=== PATIENT | female | born 1935 | race Caucasian/White ===

== ENCOUNTER 2025-05-07 10:03 | Outpatient (AMB) | payer MEDICARE, SELFPAY ==
--- NOTE | 2025-05-07 10:04 | MHC.PC.OV ---
Vital Signs 05/07/25 10:06 Height 4 ft 10.27 in Weight 170 lb BMI 35.2 BP 152/82 H Respiration 18 Pulse 86 Pulse Source Pulse Oximeter Temp 98.1 F Temp Source Temporal Artery Scan Pulse Oximetry (%) 92 Oxygen Delivery Method Room Air Intake Visit Reasons: Est Care Transfer [place] Asthma, HTN Resident Engineer Required: No Accompanied by: daughter in law Allergies No Known Allergies Allergy (Verified 05/07/25 13:25) Medication List - Last Reconciled 05/07/25 by Karol Leong PA-C amlodipine 10 mg PO DAILY budesonide (Pulmicort) 0.5 mg (2 mL) inhalation BID kjyurlyecmk-wtwvlsmbh-wjegscgk 100-62.5-25 mcg (Trelegy Ellipta) 1 inh inhalation DAILY furosemide (Lasix) 40 mg PO DAILY loratadine (Claritin) 10 mg PO DAILY Tobacco use date assessed: 05/07/25 Fall risk assessment: No Falls in past year Last assessed Fall Risk: 05/07/25 Dental Screening Dental Screen Date: 05/07/25 Did you have a dental visit in the last 12 months?: Yes Did you have a dental problem in the last 6 months where you did not have access to dental care?: No Was dental information given to patient?: Patient has dentist HPI Est Care Transfer [place] Asthma, HTN HPI Details The patient is an 89-year-old female presenting to establish a new primary care provider as she just moved to [place] from [place] due to her daughter she was living with [place] had a massive stroke and is now bed-bound with 24 hour care. Patient's zmwvjgor-zx-abf reports that the patient has been suffering from dental abscesses and chronic condition management. She has a history of asthma, which is currently managed with inhalers, and she uses supplemental oxygen as needed, particularly during exertion and sleep. The patient has chronic hypoxemic respiratory failure and chronic lower extremity edema, which are monitored regularly. The patient has a history of hypertension, currently managed with amlodipine and Lasix. Her blood pressure management is under review, with potential adjustments to her medication regimen being considered. The patient has a history of tobacco use, having smoked in her youth, but quit approximately 60 years ago. She also has a history of gastroesophageal reflux disease, which is currently not symptomatic. Social History - Housing: Recently moved from [place] to [place]. - Family Status: Is currently living with her son and djmbptsk-wi-trb as her daughter in [place] had a massive stroke and is being taken care of by her granddaughter at this time. Her granddaughter could not take care of both of them therefore the patient moved here to live with her son and her sfwhxemv-te-wtn. - Substance Use: Former smoker, quit approximately 60 years ago. [facility] Medical History Obesity (BMI 35.0-39.9 without comorbidity) Dental abscess Poor dentition Dental caries Hypertension Establishing care with new doctor, encounter for Former smoker Chronic respiratory failure Asthma Pre-op evaluation Family History Mother Pre-diabetes Father Pneumonia Social History Housing: House Alcohol intake: current Alcohol intake frequency: does not drink Patient Tobacco Use Status: Former Tobacco user service: No Current occupational status: retired Cognitive needs: Yes (has cane/walker- does not use ) Hearing needs: No Vision needs: Yes (reading glasses) Questionnaire PHQ-9 Over the last 2 weeks, how often have you been bothered by any of the following problems? 1. Little interest or pleasure in doing things: not at all 2. Feeling down, depressed, or hopeless: not at all 3. Trouble falling or staying asleep, or sleeping too much: not at all 4. Feeling tired or having little energy: not at all 5. Poor appetite or overeating: not at all 6. Feeling bad about yourself - or that you are a failure or have let yourself or your family down: not at all 7. Trouble concentrating on things, such as reading the newspaper or watching television: not at all 8. Moving or speaking so slowly that other people could have noticed. Or the opposite - being so fidgety or restless that you have been moving around a lot more than usual: not at all 9. Thoughts that you would be better off or of hurting yourself in some way: not at all Total score: 0 Depression Screening Interpretation: Negative Depression Screening Done: Yes 80895 - PHQ-9 Billing: Yes Source: Developed by Drs. Bossman Angulo, Ana Maria Bourgeois, Ba Ball and colleagues, with an educational yolie from [employer]. Thrive Questionnaire Date Thrive assessed: 05/07/25 I am a: Patient What is your living situation today?: I have a steady place to live Within the past 12 months, did the food you bought not last and you didn't have the money to get more?: Never true Within the past 12 months, did you worry whether your food would run out before you got money to buy more?: Never true Do you have trouble paying for medicines?: No Do you have trouble getting transportation to medical appointments?: No Do you have trouble paying your heating and electricity bill?: No Do you have trouble taking care of your child, family member or friend?: No Do you have trouble with day-to-day activities such as bathing, preparing meals, shopping, managing finances, etc.?: No Are you currently unemployed and looking for a job?: No Are you interested in more education?: No Please select the resources that you would like help with: None THRIVE Score: 0 AUDIT C Alcohol Use Questionnaire (AUDIT-C) 1. How often do you have a drink containing alcohol?: Never 3. How often do you have six or more drinks on one occasion?: Never Total Score: 0 Score Reviewed/Action Taken: No RONNY-7 AMB Questionnaire RONNY-7 Date RONNY - 7 assessed: 05/07/25 Feeling nervous, anxious, or on edge: 0 = Not at all Not being able to stop or control worryin = Not at all Worrying too much about different things: 0 = Not at all Trouble relaxin = Not at all Being so restless that it is hard to sit still: 0 = Not at all Becoming easily annoyed or irritable: 0 = Not at all Feeling afraid as if something awful might happen: 0 = Not at all Total RONNY-7 score (0-4 normal; 5-9 mild; 10-14 moderate; 15-21 severe): 0 Source: Developed by Drs. Bossman Angulo, Ba Brewster and colleagues, with an educational yoile from [employer]. RONNY-7 Assessment Billing RONNY-7 Assessment Tool: RONNY-7 Assessment 38689 Review of Systems Const Details: - Respiratory: Reports dyspnea on exertion and during sleep. - Cardiovascular: Denies chest pain or palpitations. - Gastrointestinal: Denies current symptoms of gastroesophageal reflux disease. Physical exam (Primary Care) Vital Signs: Last Vital Signs Temp 98.1 F 05/07/25 10:06 Pulse 86 05/07/25 10:06 Resp 18 05/07/25 10:06 BP 152/82 H 05/07/25 10:06 Pulse Ox 92 05/07/25 10:06 Oxygen Delivery Method Room Air 05/07/25 10:06 Care Plan Goal for BP management: <140/90 patient to monitor her blood pressure and keep a blood pressure diary over the next week and return at her next visit in 1 week BMI result Body Mass Index 35.2 BMI Assessment/Plan discussion: High BMI High, discussed plan: lifestyle, weight reduction, dietary, physical activity and alcohol moderation Tobacco/Smoking Status: Tobacco use Status Tobacco use date assessed 05/07/25 05/07/25 10:06 Patient Tobacco Use Status Former Tobacco user 05/07/25 10:16 PHQ-9: PHQ-9 Score PHQ-9: Total score 0 05/07/25 10:06 Depression Screening Interpretation: Negative Thrive Assessment: Date of Thrive Assessment Date Thrive assessed 05/07/25 05/07/25 10:06 Const Other: Appearance: Alert. Oriented X3. No acute distress. Head: Normal external exam. Normocephalic. Atraumatic. Eyes: Pupils are equal, round, and reactive to light. Extraocular movements intact. Conjunctiva and sclera normal. Eyelids normal. Ears: External auditory canal normal. Tympanic membranes normal. Throat: Pharynx normal. Uvula midline. Moist mucous membranes. Poor dentition throughout. Multiple dental fractures that appear chronic. No acute cellulitis or acute abscesses noted at this time. No facial swelling. No trismus drooling or stridor is noted. Patient tolerating secretions well with a normal voice. Neck: Normal inspection. Neck supple. Full range of motion. No adenopathy. Thyroid Normal. No meningeal signs. No neck mass noted. Cardiovascular: Normal heart rate and rhythm. Heart sound normal. No murmurs noted. Pulses normal throughout. Respiratory: No respiratory distress. Painless inspiration. Breath sounds normal. No wheezes/rales/rhonchi noted. Chest nontender. No accessory muscle usage noted or decreased air movement noted. Abdomen: Soft and nontender. Back: Full range of motion noted. Skin: Skin warm and dry. Normal skin color. Normal skin turgor. No rashes/lesions/lacerations noted. Extremities: Chronic lower extremity edema noted. Extremities exhibit normal range of motion. Neuro: Oriented X 3. No motor deficit. No sensory deficit. Reflexes normal. Coding Level of Care Code New Pt Level 5 (48744) Complex EM visit Add On G2211 Diagnoses Establishing care with new doctor, encounter for Z76.89 Asthma J45.909 Chronic respiratory failure J96.10 Hypertension I10 Dental caries K02.9 Poor dentition K08.9 Dental abscess K04.7 Obesity (BMI 35.0-39.9 without comorbidity) E66.9 Former smoker Z87.891 Additional Codes PHQ-9 - 34869 - PHQ-9 Billing: Yes ([id number]) RONNY-7 Assessment Billing - RONNY-7 Assessment Tool: RONNY-7 Assessment 70300 ([id number]) Assessment & Plan Assessment & Plan (1) Establishing care with new doctor, encounter for: Code(s): Z76.89 - Persons encountering health services in other specified circumstances Category: Medical (2) Asthma: Code(s): J45.909 - Unspecified asthma, uncomplicated Category: Medical Plan: The patient will continue using inhalers and supplemental oxygen as needed, particularly during exertion and sleep. A referral to pulmonology is planned for further management and follow-up. (3) Chronic respiratory failure: Code(s): J96.10 - Chronic respiratory failure, unspecified whether with hypoxia or hypercapnia Category: Medical Plan: The patient is advised to use supplemental oxygen during exertion and sleep. A referral to pulmonology is planned for further evaluation and management. (4) Hypertension: Code(s): I10 - Essential (primary) hypertension Category: Medical Plan: The patient's blood pressure management is under review, with potential adjustments to her medication regimen being considered. Patient is currently on amlodipine 10 mg daily and furosemide 40 mg daily. Blood pressure monitoring at home is recommended to assess the need for medication adjustments. (5) Dental caries: Code(s): K02.9 - Dental caries, unspecified Category: Medical Plan: The patient is scheduled for a preoperative evaluation for dental work, including a full blood workup, EKG, and chest x-ray. The dental procedure is planned to address the abscesses and prevent further complications. (6) Poor dentition: Code(s): K08.9 - Disorder of teeth and supporting structures, unspecified Category: Medical Plan: The patient is scheduled for a preoperative evaluation for dental work, including a full blood workup, EKG, and chest x-ray. The dental procedure is planned to address the abscesses and prevent further complications. (7) Dental abscess: Code(s): K04.7 - Periapical abscess without sinus Category: Medical Plan: The patient is scheduled for a preoperative evaluation for dental work, including a full blood workup, EKG, and chest x-ray. The dental procedure is planned to address the abscesses and prevent further complications. (8) Obesity (BMI 35.0-39.9 without comorbidity): Code(s): E66.9 - Obesity, unspecified Category: Medical Plan: Patient to improve diet and exercise regimen. Condition is chronic and stable continue to monitor. (9) Former smoker: Comment: over 50-60 years ago she stopped Code(s): Z87.891 - Personal history of nicotine dependence Category: Social Hx Plan Plan Patient was informed and verbally consented to the use of an ambient scribe for clinic note documentation during this visit. 1. Asthma The patient will continue using inhalers and supplemental oxygen as needed, particularly during exertion and sleep. A referral to pulmonology is planned for further management and follow-up. 2. Chronic Hypoxemic Respiratory Failure The patient is advised to use supplemental oxygen during exertion and sleep. A referral to pulmonology is planned for further evaluation and management. 3. Hypertension The patient's blood pressure management is under review, with potential adjustments to her medication regimen being considered. Blood pressure monitoring at home is recommended to assess the need for medication adjustments. 4. Dental Abscesses The patient is scheduled for a preoperative evaluation for dental work, including a full blood workup, EKG, and chest x-ray. The dental procedure is planned to address the abscesses and prevent further complications. During the visit, we discussed the management of the patient's asthma and chronic respiratory failure, emphasizing the importance of using supplemental oxygen during exertion and sleep. We also reviewed her hypertension management, considering potential medication adjustments based on home blood pressure monitoring. The need for a preoperative evaluation for dental abscesses was highlighted, including necessary diagnostic tests such as blood work, EKG, and chest x-ray. Orders: Orders Hemoglobin A1c Today Z00.00 - Encounter for general adult medical examination without abnormal findings Lipid Panel Today Z00.00 - Encounter for general adult medical examination without abnormal findings Liver Panel Today Z00.00 - Encounter for general adult medical examination without abnormal findings Vitamin B12 and Folate Today Z00.00 - Encounter for general adult medical examination without abnormal findings Magnesium Today Z00.00 - Encounter for general adult medical examination without abnormal findings XR chest 2V Today Z01.818 - Encounter for other preprocedural examination C Reactive Protein Today Z00.00 - Encounter for general adult medical examination without abnormal findings Complete Blood Count Auto Diff Today Z00.00 - Encounter for general adult medical examination without abnormal findings Comprehensive [place]. Panel Fast Today Z00.00 - Encounter for general adult medical examination without abnormal findings Vitamin D 25-OH Total Today Z00.00 - Encounter for general adult medical examination without abnormal findings TSH reflex Free T4 Today Z00.00 - Encounter for general adult medical examination without abnormal findings ECG 12 lead EKG Today Z01.818 - Encounter for other preprocedural examination Referrals Pulmonology Referral J45.909 - Unspecified asthma, uncomplicated, J96.10 - Chronic respiratory failure, unspecified whether with hypoxia or hypercapnia, Z87.891 - Personal history of nicotine dependence Medications: New amlodipine 10 mg PO DAILY 90 tabs 3RF hygcdtnnvpq-tjdgdyzjg-mglbvtoz 100-62.5-25 mcg (Trelegy Ellipta) 1 inh inhalation DAILY 28 ea 3RF furosemide (Lasix) 40 mg PO DAILY 90 tabs 3RF loratadine (Claritin) 10 mg PO DAILY 90 tabs 3RF budesonide (Pulmicort) 0.5 mg (2 mL) inhalation BID 60 mL 3RF Patient Instructions: - Continue using inhalers and supplemental oxygen as needed, especially during exertion and sleep. - Monitor blood pressure at home and record readings for the next week. - Follow up with pulmonology for further management of respiratory conditions. - Attend preoperative evaluation for dental work, including blood work, EKG, and chest x-ray.
[2025-05-07 10:06] VITALS: BP 152/82; PULSE 86; RESP 18; TEMP 36.7; O2SAT 92; BMI 35.2
== END 2025-05-07 10:41 | disposition home or self-care (01) ==
LOC: HO.HMCSH 10:03
PROVIDERS: Visit Provider Physician Assistant Medical
DX: J45.909 Unspecified asthma, uncomplicated (principal); J96.10 Chronic respiratory failure, unspecified whether with hypoxia or hypercapnia; E66.9 Obesity, unspecified; Z68.35 Body mass index [BMI] 35.0-35.9, adult; I10 Essential (primary) hypertension; K02.9 Dental caries, unspecified; K08.9 Disorder of teeth and supporting structures, unspecified; K04.7 Periapical abscess without sinus; Z87.891 Personal history of nicotine dependence

== ENCOUNTER → 2025-05-07 10:03 | Outpatient (BNVA) | payer MEDICARE, SELFPAY | PROVIDERS: Visit Provider Physician Assistant Medical | DX: Z76.89 Persons encountering health services in other specified circumstances (principal); J45.909 Unspecified asthma, uncomplicated; J96.10 Chronic respiratory failure, unspecified whether with hypoxia or hypercapnia; I10 Essential (primary) hypertension; K02.9 Dental caries, unspecified; K08.9 Disorder of teeth and supporting structures, unspecified; K04.7 Periapical abscess without sinus; E66.9 Obesity, unspecified; Z68.35 Body mass index [BMI] 35.0-35.9, adult; Z87.891 Personal history of nicotine dependence; Z71.3 Dietary counseling and surveillance | CPT/HCPCS: 96127; 99202 ==

== ENCOUNTER 2025-05-09 06:39 | Outpatient (REF) | payer MEDICARE, SELFPAY ==
--- NOTE | ~2025-05-09 | XR_ITS ---
EXAMINATION: XR CHEST 2 VIEWS HISTORY: Z01.818 - Encounter for other preprocedural examination COMPARISON: There are no prior studies available for comparison. FINDINGS: PA and lateral views of the chest are submitted. The lungs are mildly hyperinflated, but clear. There is no pleural effusion, pneumothorax, or pulmonary vascular congestion. The heart is normal in size. The aorta is calcified. The bones are intact. XR/XR chest 2V IMPRESSION: COPD. The lungs are clear. Electronically signed by: Bossman Jarrett MD 05/09/2025 09:10 AM EDT
[2025-05-09 10:18] LABS: MANUAL DIFF FLAG NO
[2025-05-09 10:24] LABS: Hematocrit 39.7 % (37.0-47.0); Hemoglobin 12.3 g/dl (12.0-16.0); Imm Gran Abs Auto 0.02 X10*3/uL (0.00-0.03); Imm Gran Pct Auto 0.2 % (0.0-0.4); Lymphocytes Absolute Auto 3.0 X10*3/uL (1.2-4.9); Mean Corpuscular HGB Conc 31.0 g/dl (31.0-35.0); Mean Corpuscular Hemoglobin 27.5 pg (27.0-33.0); Mean Corpuscular Volume 88.8 fL (80.0-98.0); NRBC Abs Auto 0.000 X10*3/uL (0.0-0.012); NRBC Pct Auto 0.0 /100WBC (0.0-0.2); Platelet Count 317 X10*3/uL (160-400); Red Blood Count 4.47 X10*6/uL (4.20-5.50); White Blood Count 8.6 X10*3/uL (4.8-10.8)
[2025-05-09 10:37] LABS: Hemoglobin A1C 125.2306 umol/L; Total Hemoglobin (HGBA1C) 3279.7131 umol/L
[2025-05-09 11:03] LABS: Alanine Aminotransferase 13 U/L (0-31); Albumin Level 4.3 g/dL (3.5-5.0); Alkaline Phosphatase 111 U/L (39-117); Anion Gap 12 (12-20); Aspartate Amino Transferase 21 U/L (5-31); Blood Urea Nitrogen 38 mg/dL (9-16); Calcium 9.6 mg/dL (8.4-10.2); Carbon Dioxide 28 mmol/L (22-29); Chloride 107 mmol/L (96-108); Cholesterol 236 mg/dL (<200); Estimated Glomerular Filt Rate 38; HDL Cholesterol 53 mg/dL (>40); Magnesium 2.4 mg/dL (1.6-2.6); Potassium 4.3 mmol/L (3.3-5.1); Sodium 143 mmol/L (135-145); Total Protein 7.6 g/dL (6.5-8.0); Triglycerides 114 mg/dL (<150)
[2025-05-09 11:20] LABS: Folate 7.5 ng/mL (> or = 4.0); Vitamin B12 390 pg/mL (200-900)
== END 2025-05-09 06:40 | disposition home or self-care (01) ==
LOC: HO.HMGCX 06:39
PROVIDERS: Visit Provider Physician Assistant Medical
DX: Z00.00 Encounter for general adult medical examination without abnormal findings (principal)
CPT/HCPCS: 36415; 71046; 80053; 80061; 80076; 82248; 82306; 82607; 82746; 83036; 83735; 84443; 85025; 86140

== ENCOUNTER → 2025-05-09 08:46 | Outpatient (BNV) | payer MEDICARE, SELFPAY | PROVIDERS: Visit Provider Radiology Diagnostic Radiology | DX: J44.9 Chronic obstructive pulmonary disease, unspecified (principal) | CPT/HCPCS: 71046 ==

== ENCOUNTER 2025-05-16 09:24 | Outpatient (AMB) | payer MEDICARE, SELFPAY ==
[2025-05-16 09:29] VITALS: BP 168/96; PULSE 84; RESP 14; TEMP 36.7; O2SAT 96; BMI 35.2
--- NOTE | 2025-05-16 09:29 | A.OFFPC_ITS ---
Vital Signs 05/16/25 09:29 Height 4 ft 10.27 in Weight 170 lb BMI 35.2 BP 168/96 H Respiration 14 Pulse 84 Pulse Source Pulse Oximeter Temp 98.1 F Temp Source Temporal Artery Scan Pulse Oximetry (%) 96 Intake Visit Reasons: 1 week follow up Director Funds Development Required: No Accompanied by: daughter in law Allergies No Known Allergies Allergy (Verified 05/16/25 11:03) Medication List - Last Reconciled 05/16/25 by Karol Leong PA-C amlodipine 10 mg PO DAILY budesonide (Pulmicort) 0.5 mg (2 mL) inhalation BID pfooerjnuxg-rvfwhqxjz-bnhlvmbf 100-62.5-25 mcg (Trelegy Ellipta) 1 inh inhalation DAILY furosemide (Lasix) 40 mg PO DAILY lisinopril 10 mg PO DAILY rosuvastatin (Crestor) 10 mg PO BEDTIME Tobacco use date assessed: 05/16/25 Dental Screening Dental Screen Date: 05/07/25 HPI 1 week follow up HPI Details The patient is an 89-year-old female presenting with a follow-up for blood pressure management. The patient has a history of essential hypertension, which has been persistently elevated despite current medication regimen including amlodipine and Lasix. Blood pressure readings at home have been in the 160s to 170s, indicating poor control. The patient is currently taking amlodipine 10 mg and Lasix 40 mg, with a plan to add lisinopril 10 mg to improve blood pressure control. The patient has chronic kidney disease with a GFR of 38, indicating stage 3 chronic kidney disease. The creatinine level is 1.33, and there is no known history of kidney disease in the family. The patient reports adequate urine output and no significant urinary symptoms. The patient has prediabetes with an average blood glucose level of 114 mg/dL and an HbA1c of 5.6%. Dietary habits include high sugar intake, which may contribute to elevated blood glucose levels. The patient has hyperlipidemia with a total cholesterol level of 236 mg/dL and LDL cholesterol of 161 mg/dL. The patient is not currently on any cholesterol- lowering medication, and Crestor 10 mg is planned to be initiated. Social History - Nutritional intake: High sugar intake noted, including soda and other sugary foods. [facility] Medical History (Updated 05/16/25 @ 11:06 by Karol Leong PA-C) Hyperlipidemia Prediabetes CKD (chronic kidney disease) Obesity (BMI 35.0-39.9 without comorbidity) Dental abscess Poor dentition Dental caries Hypertension Establishing care with new doctor, encounter for Former smoker Chronic respiratory failure Asthma Pre-op evaluation Family History Mother Pre-diabetes Father Pneumonia Social History Housing: House Alcohol intake: current Alcohol intake frequency: does not drink Patient Tobacco Use Status: Former Tobacco user service: No Current occupational status: retired Cognitive needs: Yes (has cane/walker- does not use ) Hearing needs: No Vision needs: Yes (reading glasses) Questionnaire PHQ-9 Over the last 2 weeks, how often have you been bothered by any of the following problems? 1. Little interest or pleasure in doing things: not at all 2. Feeling down, depressed, or hopeless: not at all 3. Trouble falling or staying asleep, or sleeping too much: not at all 4. Feeling tired or having little energy: not at all 5. Poor appetite or overeating: not at all 6. Feeling bad about yourself - or that you are a failure or have let yourself or your family down: not at all 7. Trouble concentrating on things, such as reading the newspaper or watching television: not at all 8. Moving or speaking so slowly that other people could have noticed. Or the opposite - being so fidgety or restless that you have been moving around a lot more than usual: not at all 9. Thoughts that you would be better off or of hurting yourself in some way: not at all Total score: 0 Depression Screening Interpretation: Negative Depression Screening Done: Yes 93949 - PHQ-9 Billing: Yes Source: Developed by Drs. Bossman Angulo, Ana Maria Bourgeois, Ba Ball and colleagues, with an educational yolie from [employer]. Thrive Questionnaire Date Thrive assessed: 05/07/25 I am a: Patient What is your living situation today?: I have a steady place to live Within the past 12 months, did the food you bought not last and you didn't have the money to get more?: Never true Within the past 12 months, did you worry whether your food would run out before you got money to buy more?: Never true Do you have trouble paying for medicines?: No Do you have trouble getting transportation to medical appointments?: No Do you have trouble paying your heating and electricity bill?: No Do you have trouble taking care of your child, family member or friend?: No Do you have trouble with day-to-day activities such as bathing, preparing meals, shopping, managing finances, etc.?: No Are you currently unemployed and looking for a job?: No Are you interested in more education?: No Please select the resources that you would like help with: None THRIVE Score: 0 AUDIT C Alcohol Use Questionnaire (AUDIT-C) 1. How often do you have a drink containing alcohol?: Never 3. How often do you have six or more drinks on one occasion?: Never Total Score: 0 Score Reviewed/Action Taken: No RONNY-7 AMB Questionnaire RONNY-7 Date RONNY - 7 assessed: 05/07/25 Feeling nervous, anxious, or on edge: 0 = Not at all Not being able to stop or control worryin = Not at all Worrying too much about different things: 0 = Not at all Trouble relaxin = Not at all Being so restless that it is hard to sit still: 0 = Not at all Becoming easily annoyed or irritable: 0 = Not at all Feeling afraid as if something awful might happen: 0 = Not at all Total RONNY-7 score (0-4 normal; 5-9 mild; 10-14 moderate; 15-21 severe): 0 Source: Developed by Drs. Bossman Angulo, Ana Maria Bourgeois, Ba Ball and colleagues, with an educational yolie from [employer]. RONNY-7 Assessment Billing RONNY-7 Assessment Tool: RONNY-7 Assessment 56481 Review of Systems Const Details: - Cardiovascular: Reports elevated blood pressure readings at home. - Genitourinary: Denies urinary symptoms, reports adequate urine output. Physical exam (Primary Care) Vital Signs: Last Vital Signs Temp 98.1 F 05/16/25 09:29 Pulse 84 05/16/25 09:29 Resp 14 05/16/25 09:29 BP 168/96 H 05/16/25 09:29 Pulse Ox 96 05/16/25 09:29 Care Plan Goal for BP management: <140/90 patient to monitor her blood pressure and return in 4-6 weeks with blood pressure diary will add lisinopril 10 mg to the patient's current regimen of amlodipine 10 mg daily and furosemide 40 mg daily BMI result Body Mass Index 35.2 BMI Assessment/Plan discussion: High BMI High, discussed plan: lifestyle, weight reduction, dietary, physical activity and alcohol moderation Tobacco/Smoking Status: Tobacco use Status Tobacco use date assessed 05/16/25 05/16/25 09:31 Patient Tobacco Use Status Former Tobacco user 05/16/25 09:31 PHQ-9: PHQ-9 Score PHQ-9: Total score 0 05/16/25 09:31 Depression Screening Interpretation: Negative Thrive Assessment: Date of Thrive Assessment Date Thrive assessed 05/07/25 05/16/25 09:31 Const Other: Appearance: Alert. Oriented X3. No acute distress. Head: Normal external exam. Normocephalic. Atraumatic. Eyes: Pupils are equal, round, and reactive to light. Extraocular movements intact. Conjunctiva and sclera normal. Eyelids normal. Throat: Pharynx normal. Uvula midline. Moist mucous membranes. Neck: Normal inspection. Neck supple. Full range of motion. Cardiovascular: Normal heart rate and rhythm. Respiratory: No respiratory distress. Painless inspiration. Back: Full range of motion noted. Skin: Skin warm and dry. Normal skin color. Normal skin turgor. No rashes/lesions/lacerations noted. Extremities: No lower extremity edema. Extremities exhibit normal range of motion. Neuro: Oriented X 3. No motor deficit. No sensory deficit. Reflexes normal. Results Reviewed Results Reviewed: - Labs: CBC normal, no anemia, normal platelet count, normal sodium, potassium, chloride, ANI, and GAP. - Labs: GFR 38, creatinine 1.33 indicating chronic kidney disease. - Labs: Total cholesterol 236 mg/dL, LDL cholesterol 161 mg/dL. - Labs: Average blood glucose 114 mg/dL, HbA1c 5.6%. Coding Level of Care Code Est Pt Level 4 (61423) Complex EM visit Add On G2211 Diagnoses Hypertension I10 CKD (chronic kidney disease) N18.9 Prediabetes R73.03 Hyperlipidemia E78.5 Additional Codes RONNY-7 Assessment Billing - RONNY-7 Assessment Tool: RONNY-7 Assessment 36162 ([id number]) PHQ-9 - 99227 - PHQ-9 Billing: Yes ([id number]) Assessment & Plan Assessment & Plan (1) Hypertension: Code(s): I10 - Essential (primary) hypertension Category: Medical Plan: The patient will continue with amlodipine 10 mg and Lasix 40 mg, and lisinopril 10 mg will be added to the regimen to better control blood pressure. Follow-up in one month is planned to assess blood pressure control and adjust medications as needed. (2) CKD (chronic kidney disease): Code(s): N18.9 - Chronic kidney disease, unspecified Category: Medical Plan: The patient will be referred to a software licensing executive for further evaluation of chronic kidney disease. A kidney ultrasound will be performed to assess for any structural abnormalities. Repeat blood work will be conducted in one month to monitor kidney function. (3) Prediabetes: Code(s): R73.03 - Prediabetes Category: Medical Plan: The patient is advised to reduce sugar intake, including sugary drinks and foods, to manage blood glucose levels. Regular monitoring of blood glucose levels is recommended. (4) Hyperlipidemia: Code(s): E78.5 - Hyperlipidemia, unspecified Category: Medical Plan: Crestor 10 mg will be initiated to manage hyperlipidemia. The patient is advised to report any muscle aches, which may indicate a side effect of the medication. Plan Plan Patient was informed and verbally consented to the use of an ambient scribe for clinic note documentation during this visit. 1. Essential Hypertension The patient will continue with amlodipine 10 mg and Lasix 40 mg, and lisinopril 10 mg will be added to the regimen to better control blood pressure. Follow-up in one month is planned to assess blood pressure control and adjust medications as needed. 2. Chronic Kidney Disease The patient will be referred to a software licensing executive for further evaluation of chronic kidney disease. A kidney ultrasound will be performed to assess for any structural abnormalities. Repeat blood work will be conducted in one month to monitor kidney function. 3. Prediabetes The patient is advised to reduce sugar intake, including sugary drinks and foods, to manage blood glucose levels. Regular monitoring of blood glucose levels is recommended. 4. Hyperlipidemia Crestor 10 mg will be initiated to manage hyperlipidemia. The patient is advised to report any muscle aches, which may indicate a side effect of the medication. During the visit, we discussed the addition of lisinopril 10 mg to the patient's regimen to better control her blood pressure, which has been persistently elevated. We also reviewed her chronic kidney disease, and I recommended a referral to a software licensing executive for further evaluation and a kidney ultrasound to assess for any structural abnormalities. The patient was informed about her prediabetes status and advised to reduce sugar intake to manage her blood glucose levels. We decided to start Crestor 10 mg for hyperlipidemia and discussed the potential side effect of muscle aches, advising her to report any such symptoms. Orders: Orders Basic Metabolic Panel Today N18.9 - Chronic kidney disease, unspecified UA CC w/rflx Micro + Cult Today N18.9 - Chronic kidney disease, unspecified US renal BI Today N18.9 - Chronic kidney disease, unspecified Referrals Nephrology Referral N18.9 - Chronic kidney disease, unspecified Medications: New lisinopril 10 mg PO DAILY 30 tabs 0RF rosuvastatin (Crestor) 10 mg PO BEDTIME 90 tabs 3RF Patient Instructions: - Continue taking amlodipine 10 mg and Lasix 40 mg as prescribed. - Start lisinopril 10 mg daily to help control blood pressure. - Begin Crestor 10 mg at bedtime for cholesterol management. - Reduce intake of sugary foods and drinks to manage blood glucose levels. - Schedule a follow-up appointment in one month to reassess blood pressure and kidney function. - Expect a call to schedule a kidney ultrasound and nephrology appointment. - Report any muscle aches or unusual symptoms to the healthcare provider.
== END 2025-05-16 10:14 | disposition home or self-care (01) ==
LOC: HO.HMCSH 09:24
PROVIDERS: Visit Provider Physician Assistant Medical
DX: I12.9 Hypertensive chronic kidney disease with stage 1 through stage 4 chronic kidney disease, or unspecified chronic kidney disease (principal); N18.9 Chronic kidney disease, unspecified; R73.03 Prediabetes; E78.5 Hyperlipidemia, unspecified

== ENCOUNTER → 2025-05-16 09:24 | Outpatient (BNVA) | payer MEDICARE, SELFPAY | PROVIDERS: Visit Provider Physician Assistant Medical | DX: I12.9 Hypertensive chronic kidney disease with stage 1 through stage 4 chronic kidney disease, or unspecified chronic kidney disease (principal); N18.9 Chronic kidney disease, unspecified; E78.5 Hyperlipidemia, unspecified; R73.03 Prediabetes | CPT/HCPCS: 96127; 99212 ==

== ENCOUNTER → 2025-05-17 15:18 | Outpatient (REF) | payer MEDICARE, SELFPAY ==
--- NOTE | 2025-05-17 15:22 | ECG_ITS ---
Test Reason : pre op Blood Pressure : */* mmHG Vent. Rate : 93 BPM Atrial Rate : 93 BPM P-R Int : 198 ms QRS Dur : 68 ms QT Int : 334 ms P-R-T Axes : 57 0 73 degrees QTcB Int : 415 ms Normal sinus rhythm Minimal voltage criteria for LVH, may be normal variant ( R in aVL ) Septal infarct , age undetermined Abnormal ECG No previous ECGs available Referred By: Karol Leong Electronically Signed By: SUYAPA POLANCO MD
== END ==
LOC: HO.CARD 15:18
PROVIDERS: Visit Provider Physician Assistant Medical
DX: I10 Essential (primary) hypertension (principal)
CPT/HCPCS: 93005

== ENCOUNTER → 2025-05-17 15:22 | Outpatient (BNV) | payer MEDICARE, SELFPAY | PROVIDERS: Visit Provider Internal Medicine Cardiovascular Disease | DX: R94.31 Abnormal electrocardiogram [ECG] [EKG] (principal); Z01.810 Encounter for preprocedural cardiovascular examination | CPT/HCPCS: 93010 ==

== ENCOUNTER 2025-06-26 10:02 | Outpatient (REF) | payer MEDICARE, SELFPAY ==
[2025-06-26 13:53] LABS: Appearance Urine Clear; Glucose Urine UA Negative (Negative); PH 5.5 (5.0-9.0); Specific Gravity - Urine 1.015 (1.005-1.025); UMIC TRIGGER UACC YES
[2025-06-26 14:01] LABS: UACC Culture Trigger YES
[2025-06-26 14:09] LABS: Anion Gap 15 (12-20); Blood Urea Nitrogen 18 mg/dL (9-16); Calcium 9.3 mg/dL (8.4-10.2); Carbon Dioxide 26 mmol/L (22-29); Chloride 108 mmol/L (96-108); Estimated Glomerular Filt Rate 45; Potassium 4.8 mmol/L (3.3-5.1); Sodium 144 mmol/L (135-145)
== END 2025-06-26 10:03 | disposition home or self-care (01) ==
LOC: HO.HMGCLDS 10:02
PROVIDERS: PCP Physician Assistant Medical; Visit Provider Physician Assistant Medical
DX: N18.9 Chronic kidney disease, unspecified (principal)
CPT/HCPCS: 36415; 80048; 81001; 87086

== ENCOUNTER 2025-06-27 10:19 | Outpatient (AMB) | payer MEDICARE, SELFPAY ==
--- NOTE | 2025-06-27 10:23 | A.OFFPC_ITS ---
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 Required: No Accompanied by: daughter in law Allergies No Known Allergies Allergy (Verified 06/27/25 13:35) Medication List - Last Reconciled 06/27/25 by Karol Leong PA-C amlodipine 10 mg PO DAILY budesonide (Pulmicort) 0.5 mg (2 mL) inhalation BID ezetimibe (Zetia) 10 mg PO DAILY skrlrlcnafr-lfomumicb-vucajaxn 100-62.5-25 mcg (Trelegy Ellipta) 1 inh inhalation DAILY furosemide (Lasix) 40 mg PO DAILY lisinopril 20 mg PO DAILY nitrofurantoin monohyd/m-cryst 100 mg (Macrobid) 100 mg PO Q12H 5 days Tobacco use date assessed: 06/27/25 Dental Screening Dental Screen Date: 05/07/25 HPI 6 week follow up HPI Details The patient is an 89-year-old female presenting with hypertension manag ement and preventative care. Hypertension has been a persistent issue, with current medication including amlodipine 10 mg and lisinopril, which is being increased to 20 mg due to elevated blood pressure readings of 162/80 mmHg. The patient does not recall if she took her medication on the day of the visit, which may contribute to the elevated reading. The patient reports swelling in one leg, which is not associated with pain or previous injury. There is a history of varicose veins, but no surgical interventions have been performed. Dementia is noted, with some improvement in symptoms since starting Zetia, as reported by the patient's family. A recent urine test showed mixed bacteria, but no significant growth, suggesting a possible urinary tract infection without symptoms. The patient denies dysuria or increased frequency of urination. Preventative care measures include administration of influenza and pneumococcal vaccines during the visit. Social history - Family status: Patient's family is inv olved in her care, as indicated by discussions about medication and health observations. - Housing: Patient's family has [facility] in [place], indicating potential travel and housing stability. [facility] Medical History (Updated 06/27/25 @ 13:41 by Karol Leong PA-C) Pneumococcal vaccine administered Influenza vaccine administered UTI (urinary tract infection) Dementia Pedal edema Hyperlipidemia Prediabetes CKD (chronic kidney disease) Obesity (BMI 35.0-39.9 without comorbidity) Dental abscess Poor dentition Dental caries Hypertension Establishing care with new doctor, encounter for Former smoker Chronic respiratory failure Asthma Pre-op evaluation Family History Mother Pre-diabetes Father Pneumonia Social History Housing: House Alcohol intake: current Alcohol intake frequency: does not drink Patient Tobacco Use Status: Former Tobacco user service: No Current occupational status: retired Cognitive needs: Yes (has cane/walker- does not use ) Hearing needs: No Vision needs: Yes (reading glasses) Questionnaire PHQ-9 Over the last 2 weeks, how often have you been bothered by any of the following problems? 1. Little interest or pleasure in doing things: not at all 2. Feeling down, depressed, or hopeless: not at all 3. Trouble falling or staying asleep, or sleeping too much: not at all 4. Feeling tired or having little energy: not at all 5. Poor appetite or overeating: not at all 6. Feeling bad about yourself - or that you are a failure or have let yourself or your family down: not at all 7. Trouble concentrating on things, such as reading the newspaper or watching television: not at all 8. Moving or speaking so slowly that other people could have noticed. Or the opposite - being so fidgety or restless that you have been moving around a lot more than usual: not at all 9. Thoughts that you would be better off or of hurting yourself in some way: not at all Total score: 0 Depression Screening Interpretation: Negative Depression Screening Done: Yes 13990 - PHQ-9 Billing: Yes Source: Developed by Drs. Bossman Angulo, Ana Maria Bourgeois, Ba Ball and colleagues, with an educational yolie from [employer]. Thrive Questionnaire Date Thrive assessed: 05/16/25 I am a: Patient What is your living situation today?: I have a steady place to live Within the past 12 months, did the food you bought not last and you didn't have the money to get more?: Never true Within the past 12 months, did you worry whether your food would run out before you got money to buy more?: Never true Do you have trouble paying for medicines?: No Do you have trouble getting transportation to medical appointments?: No Do you have trouble paying your heating and electricity bill?: No Do you have trouble taking care of your child, family member or friend?: No Do you have trouble with day-to-day activities such as bathing, preparing meals, shopping, managing finances, etc.?: No Are you currently unemployed and looking for a job?: No Are you interested in more education?: No Please select the resources that you would like help with: None THRIVE Score: 0 AUDIT C Alcohol Use Questionnaire (AUDIT-C) 1. How often do you have a drink containing alcohol?: Never 3. How often do you have six or more drinks on one occasion?: Never Total Score: 0 Score Reviewed/Action Taken: No RONNY-7 AMB Questionnaire RONNY-7 Date RONNY - 7 assessed: 05/16/25 Feeling nervous, anxious, or on edge: 0 = Not at all Not being able to stop or control worryin = Not at all Worrying too much about different things: 0 = Not at all Trouble relaxin = Not at all Being so restless that it is hard to sit still: 0 = Not at all Becoming easily annoyed or irritable: 0 = Not at all Feeling afraid as if something awful might happen: 0 = Not at all Total RONNY-7 score (0-4 normal; 5-9 mild; 10-14 moderate; 15-21 severe): 0 Source: Developed by Drs. Bossman Angulo, Ana Maria Bourgeois, Ba Ball and colleagues, with an educational yolie from [employer]. RONNY-7 Assessment Billing RONNY-7 Assessment Tool: RONNY-7 Assessment 00262 Review of Systems Const Details: - Cardiovascular: Reports elevated blood pressure. Denies chest pain or palpitations. - Musculoskeletal: Reports swelling in one leg. Denies pain or history of injury. - Genitourinary: Denies dysuria or increased frequency of urination. All systems reviewed & are unremarkable except as noted in HPI and below Physical exam (Primary Care) Vital Signs: Last Vital Signs Temp 98.2 F 06/27/25 10:26 Pulse 74 06/27/25 10:26 Resp 16 06/27/25 10:26 BP 162/80 H 06/27/25 10:26 Pulse Ox 93 06/27/25 10:26 Oxygen Delivery Method Room Air 06/27/25 10:26 Care Plan Goal for BP management: <140/90 at Goal BMI result Body Mass Index 34.8 BMI Assessment/Plan discussion: High BMI High, discussed plan: lifestyle, weight reduction, dietary, physical activity, alcohol moderation and other Tobacco/Smoking Status: Tobacco use Status Tobacco use date assessed 06/27/25 06/27/25 10:42 Patient Tobacco Use Status Former Tobacco user 06/27/25 10:29 PHQ-9: PHQ-9 Score PHQ-9: Total score 0 06/27/25 11:26 Depression Screening Interpretation: Negative Thrive Assessment: Date of Thrive Assessment Date Thrive assessed 05/16/25 06/27/25 10:42 Const Other: Appearance: Alert. Oriented X3. No acute distress. Head: Normal external exam. Normocephalic. Atraumatic. Eyes: Pupils are equal, round, and reactive to light. Extraocular movements intact. Conjunctiva and sclera normal. Eyelids normal. Throat: Pharynx normal. Uvula midline. Moist mucous membranes. Neck: Normal inspection. Neck supple. Full range of motion. Cardiovascular: Normal heart rate and rhythm. Heart sound normal. No murmurs noted. Pulses normal throughout. Respiratory: No respiratory distress. Painless inspiration. Breath sounds normal. No wheezes/rales/rhonchi noted. Chest nontender. No accessory muscle usage noted or decreased air movement noted. Back: Full range of motion noted. Skin: Skin warm and dry. Normal skin color. Extremities: Mild swelling noted in one leg, left side. Although no calf tenderness is noted. Extremities exhibit normal range of motion. Office Procedures Flu Questionnaire Does the patient have a severe egg allergy?: No Does the patient have severe life threatening allergies?: No Does the patient have a fever or illness today?: No Has the patient ever had Guillain-[place] Syndrome?: No Has the patient ever had any past reaction to a flu shot?: No Immunizations Fluarix [id number] (PF) 45 mcg (15 mcg x 3)/0.5 mL IM syringe Performing Provider: Karol Leong PA-C Performing Location[place] [facility] [place] [facility] [place] [facility] Administered by: ZAIN Dickens on 06/27/25 10:50 Dose Route Admin Location Dispensed Lot Number Expiration Date [place] General Ii Farmworker 0.5 mL IM Left Deltoid 0.5 mL [id number] 04/15/26 [id number] [employer] VIS Given Date VIS Provided VIS Publication Date 06/27/25 Single Vaccine 24 Eligibility Eligibility Date Funding Source Not VFC Eligible 06/27/25 Private pneumoc 20-elisa conj-dip cr(PF) 0.5 mL IM syringe Performing Provider: Karol Leong PA-C Performing Location[place] [facility] [place] [place] [facility] Administered by: ZAIN Dickens on 06/27/25 11:26 Dose Route Admin Location Dispensed Lot Number Expiration Date [facility] General Ii Farmworker 0.5 mL IM Right Deltoid 0.5 mL [id number] 10/16/25 [id number] [employer] Total Dispensed Waste 0.5 mL 0 % VIS Given Date VIS Provided VIS Publication Date 06/27/25 Single Vaccine 25 Eligibility Eligibility Date Funding Source Not VF Eligible 06/27/25 Private Results Reviewed Results Reviewed: - Labs: Urine culture showed mixed bacteria, no significant growth Coding Level of Care Code Est Pt Level 4 (86687) Complex EM visit Add On G2211 Diagnoses Hypertension I10 Pedal edema R60.0 Dementia F03.90 UTI (urinary tract infection) N39.0 Influenza vaccine administered Z23 Pneumococcal vaccine administered Z23 Additional Codes RONNY-7 Assessment Billing - RONNY-7 Assessment Tool: RONNY-7 Assessment 95595 ([id number]) PHQ-9 - 24475 - PHQ-9 Billing: Yes ([id number]) Assessment & Plan Assessment & Plan (1) Hypertension: Code(s): I10 - Essential (primary) hypertension Category: Medical Plan: The patient's blood pressure was elevated at 162/80 mmHg during the visit, and she is currently on amlodipine 10 mg. Due to the persistent elevation, lisinopril dosage is being increased to 20 mg. The patient is advised to monitor her blood pressure at home and ensure medication adherence. (2) Pedal edema: Code(s): R60.0 - Localized edema Category: Medical Plan: The patient reports swelling in one leg without associated pain or history of injury. There is a history of varicose veins, but no surgical interventions have been performed. Monitoring is advised, and further evaluation may be considered if symptoms persist or worsen. (3) Dementia: Code(s): F03.90 - Unspecified dementia, unspecified severity, without behavioral disturbance, psychotic disturbance, mood disturbance, and anxiety Category: Medical Plan: The patient has dementia, with some improvement in symptoms noted since starting Zetia, as reported by her family. Continued monitoring of cognitive function is recommended. (4) UTI (urinary tract infection): Code(s): N39.0 - Urinary tract infection, site not specified Category: Medical Plan: A recent urine test showed mixed bacteria, but no significant growth, suggesting a possible urinary tract infection without symptoms. The patient denies dysuria or increased frequency of urination, and a watchful waiting approach is rec ommended. Macrobid is prescribed as a precautionary measure if symptoms develop. (5) Influenza vaccine administered: Code(s): Z23 - Encounter for immunization Category: Medical Plan: The patient received an influenza vaccination during the visit as part of her preventative care regimen. (6) Pneumococcal vaccine administered: Code(s): Z23 - Encounter for immunization Category: Medical Plan: The patient received a pneumococcal vaccination during the visit to prevent pneumonia. Plan Plan Patient was informed and verbally consented to the use of an ambient scribe for clinic note documentation during this visit. 1. Essential Hypertension The patient's blood pressure was elevated at 162/80 mmHg during the visit, and she is currently on amlodipine 10 mg. Due to the persistent elevation, lisinopril dosage is being increased to 20 mg. The patient is advised to monitor her blood pressure at home and ensure medication adherence. 2. Edema The patient reports swelling in one leg without associated pain or history of i njury. There is a history of varicose veins, but no surgical interventions have been performed. Monitoring is advised, and further evaluation may be considered if symptoms persist or worsen. 3. Dementia The patient has dementia, with some improvement in symptoms noted since starting Zetia, as reported by her family. Continued monitoring of cognitive function is recommended. 4. Urinary Tract Infection (Suspected) A recent urine test showed mixed bacteria, but no significant growth, suggesting a possible urinary tract infection without symptoms. The patient denies dysuria or increased frequency of urination, and a watchful waiting approach is recommended. Macrobid is prescribed as a precautionary measure if symptoms develop. 5. Preventative Care: Influenza Vaccination The patient received an influenza vaccination during the visit as part of her preventative care regimen. 6. Preventative Care: Pneumococcal Vaccination The patient received a pneumococcal vaccination during the visit to prevent pneumonia. During the visit, we discussed the management of hypertension, including increasing the lisinopril dosage to 20 mg and ensuring medication adherence. We also addressed the leg swelling, noting the absence of pain or injury, and decided on monitoring the condition. For dementia, the family reported improvements with Zetia, and we agreed to continue monitoring cognitive function. Regarding the urinary tract infection, we opted for a watchful waiting approach with Macrobid prescribed as a precaution. Preventative care included administering influenza and pneumococcal vaccines. Orders: Orders Pneumococcal 20 Immunization Today Z23 - Encounter for immunization Influenza [id number] Immunization Today Z23 - Encounter for immunization Medications: New nitrofurantoin monohyd/m-cryst 100 mg (Macrobid) must administer with a meal/food 100 mg PO Q12H 10 caps 0RF 5 days ezetimibe (Zetia) 10 mg PO DAILY 90 tabs 3RF Changed From lisinopril 10 mg PO DAILY 90 tabs 3RF To lisinopril 20 mg PO DAILY 30 tabs 0RF Discontinued rosuvastatin (Crestor) Discontinued Reason: Doctor's Order 10 mg PO BEDTIME 90 tabs 3RF Patient Instructions: - Take lisinopril 20 mg daily and monitor blood pressure at home. - Observe leg swelling and report any changes or pain. - Continue taking Zetia and monitor for cognitive changes. - Watch for urinary symptoms and take Macrobid if symptoms develop. - Return for follow-up in 30 days for blood pressure check.
[2025-06-27 10:26] VITALS: BP 162/80; PULSE 74; RESP 16; TEMP 36.8; O2SAT 93; BMI 34.8
== END 2025-06-27 11:11 | disposition home or self-care (01) ==
LOC: HO.HMCSH 10:19
PROVIDERS: PCP Physician Assistant Medical; Visit Provider Physician Assistant Medical
DX: I10 Essential (primary) hypertension (principal); R60.0 Localized edema; F03.90 Unspecified dementia, unspecified severity, without behavioral disturbance, psychotic disturbance, mood disturbance, and anxiety; N39.0 Urinary tract infection, site not specified; Z23 Encounter for immunization

== ENCOUNTER → 2025-06-27 10:19 | Outpatient (BNVA) | payer MEDICARE, SELFPAY | PROVIDERS: PCP Physician Assistant Medical; Visit Provider Physician Assistant Medical | DX: I10 Essential (primary) hypertension (principal); F03.90 Unspecified dementia, unspecified severity, without behavioral disturbance, psychotic disturbance, mood disturbance, and anxiety; R60.0 Localized edema; N39.0 Urinary tract infection, site not specified; Z23 Encounter for immunization | CPT/HCPCS: 90471; 90472; 90656; 90677; 96127; 99212 ==

== ENCOUNTER 2025-06-28 10:12 | Outpatient (AMB) | payer MEDICARE, SELFPAY ==
[2025-06-28 10:30] VITALS: BP 180/78; PULSE 89; O2SAT 95; BMI 34.6
--- NOTE | 2025-06-28 10:30 | MHC.OFFVIS ---
Vital Signs 06/28/25 10:30 Height 4 ft 10.27 in Weight 167 lb 4 oz BMI 34.6 BP 180/78 H Blood Pressure Location Rt brachial Position Sitting Pulse 89 Pulse Source Pulse Oximeter Pulse Oximetry (%) 95 Oxygen Delivery Method Room Air Intake Visit Reasons: Asthma,Chronic respiratory failure,lashon dependance Allergies No Known Allergies Allergy (Verified 06/28/25 10:32) HPI HPI Asthma,Chronic respiratory failure,lashon dependance: Details: Vicky is a pleasant 89 year old female, former 20 pack year smoker, quit 40+ years ago with underlying asthma, chronic respiratory failure not on home O2, and HTN. She was referred by PCP for pulmonary evaluation and is accompanied by family member today. She has a history of asthma, dx as an adult never requiring intubation. The patient reports occasional wheezing and is allergic to various environmental factors which trigger respiratory symptoms. The patient has been using Trelegy inhaler inconsistently, only when she feels it is necessary, rather than daily as prescribed. She has not experienced any recent hospitalizations for asthma or bronchitis, and her oxygen saturation levels have been stable, typically around 95%, checking at home. Prior documentations reviewed, PFT 2022 suggestive of asthma and recent CXR suggestive of COPD with mild hyperinflation. She recently moved here from [place] in February, previously requiring supplemental oxygen and has a few tanks at home however does not use and family is questioning continued need. Prior DME in [place]. The patient also has a history of allergic rhinitis, with elevated eosinophil levels noted in her blood work, indicating an allergic response. She denies significant sinus issues and reports that her allergy medications are effective. She is not interested in any allergy testing at this time. The patient has a history of smoking, having smoked a full pack per day for approximately 20 years, but she quit smoking around 40 years ago. She has no significant family history of respiratory issues, although her was a smoker, so has second hand smoke exposure. 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 [facility] Medical History (Updated 06/28/25 @ 13:00 by Ayde Page NP) Pneumococcal vaccine administered Influenza vaccine administered UTI (urinary tract infection) Dementia Pedal edema Hyperlipidemia Prediabetes CKD (chronic kidney disease) Obesity (BMI 35.0-39.9 without comorbidity) Dental abscess Poor dentition Dental caries Hypertension Establishing care with new doctor, encounter for Former smoker Chronic respiratory failure Asthma Pre-op evaluation Family History Mother Pre-diabetes Father Pneumonia Social History Housing: House Alcohol intake: current Alcohol intake frequency: does not drink Patient Tobacco Use Status: Former Tobacco user service: No Current occupational status: retired Cognitive needs: Yes (has cane/walker- does not use ) Hearing needs: No Vision needs: Yes (reading glasses) Review of Systems Const Denies chills, Denies excessive sweating, Denies fever(s), Denies headache(s) and Denies night sweats Eyes Denies dry eyes, Denies irritation and Denies itchy eyes ENT Reports Normal hearing present, Denies headache(s), Denies nasal congestion, Denies nasal discharge, Denies post nasal drip and Denies sore throat Card Denies chest pain, Denies chest pain at rest, Denies chest pain with activity, Denies claudication, Denies orthopnea and Denies paroxysmal nocturnal dyspnea Resp Denies chest congestion, Denies cough, Denies excessive phlegm production, Denies pain on inspiration, Denies pain with cough, Denies stridor and Denies wheezing Musc Denies myalgias Neuro Reports Normal hearing present and Denies headache(s) Endo Denies excessive sweating Jeffery/Lymph Denies lymphadenopathy Aller/Immun Denies itchy eyes, Denies seasonal rhinorrhea and Denies wheezing Physical Exam Vital Signs: Last Vital Signs Pulse 89 06/28/25 10:30 BP 180/78 H 06/28/25 10:30 Pulse Ox 95 06/28/25 10:30 Oxygen Delivery Method Room Air 06/28/25 10:30 BMI result Body Mass Index 34.6 Const General: cooperative, healthy appearing, comfortable, no acute distress, well developed and alert Nutritional Appearance: obese Orientation/consciousness: patient oriented x3 Limitations: no limitations HEENT Head: Yes normal to inspection, Yes normocephalic and Yes atraumatic Ears: hearing grossly normal bilaterally and external ears normal Eyes General: appearance normal, both eyes and all related structures Eyelids: Yes eyelids normal Sclerae: sclerae normal EOM: EOMs intact bilaterally Neck Neck: Yes normal visual inspection and Yes no lymphadenopathy Lymphatic: no lymphadenopathy noted Chest Chest palpation & inspection: normal inspection of the chest Resp Effort & Inspection: normal respiratory effort, able to speak in complete sentences, no audible wheezes, no cough, no stridor, not tachypneic, no tripod positioning and no use of accessory muscles Auscultation: clear to auscultation bilaterally Cardio Jugular venous distension: no JVD Rate: regular rate Rhythm: regular rhythm Skin Other: warm, dry General skin exam: no rashes or lesions noted Neuro General: patient oriented x3 Cranial nerves: Yes Normal hearing present Cognition (Neuro): normal cognition Extrem Other: mild edema of RLE Psych Appearance: grossly normal and well kempt Speech and movement: Normal speech and movement present and Clear speech present Affect: normal affect Attitude: cooperative Thought process: Normal thought process present Thought content: Normal thought content present Insight: Good insight present (Psych) Judgement: Good judgement present (Psych) Office Procedures 6 Minute Walk 6 Minute Walk (with oxygen) Time:: 11:06 SPO2 % at rest:: 96 Pulse at rest:: 91 SPO2 % during exercise:: 89 Pulse during exercise:: 135 SPO2 % after exercise: 91 Pulse after exercise:: 126 Distance in yards walked:: 50 Bharath Score:: 8 Performance Observations: Patient walked on level ground unassisted at a slow pace. Patient walked for 3 minutes maintaining O2 saturation of 89-91 with pulse in the 120's. At just past the 3 minute jey patient was short of breath and heart rate was up to 135. Walk was stopped at that time. 38929 - 6 Minute Walk Assessment & Plan Assessment & Plan (1) Asthma: Code(s): J45.909 - Unspecified asthma, uncomplicated Category: Medical (2) Chronic respiratory failure: Code(s): J96.10 - Chronic respiratory failure, unspecified whether with hypoxia or hypercapnia Category: Medical (3) Former smoker: Comment: over 50-60 years ago she stopped Code(s): Z87.891 - Personal history of nicotine dependence Category: Social Hx Plan Vicky presents for pulmonary evaluation with known h/o asthma and chronic respiratory failure. Discussed with the patient the importance of using the Trelegy inhaler consistently to manage her asthma, emphasizing the need to rinse her mouth after use to prevent thrush. We also talked about conducting an overnight oxygen test to assess need for supplemental oxygen at [facility], as she previously required. 6MWT performed and patient did not require supplemental oxygen however appeared visibily dyspneic, HR reached 130s and lowest O2 89%, ultimately ceasing test due to HR. She denies prior cardiac evaluation, however is maintained on lasix for BLE edema, will send for echo. BP elevated during visit and patient recently had adjustments made to hypertensive medications which she has yet to start. Encouraged patient to start as soon as possible and monitor BP at home. If continues to be elevated, has BP cuff at home, call PCP or if becomes symptomatic seek emergent care. All questions were answered and patient is in agreement of plan. Will follow up in 8 weeks or sooner if needed. Orders: Orders CA echo transthoracic complete Today R06.00 - Dyspnea, unspecified Overnight Pulse Oximetry Today G47.34 - Idiopathic sleep related nonobstructive alveolar hypoventilation AMB 6 minute walk Today J45.909 - Unspecified asthma, uncomplicated, J96.10 - Chronic respiratory failure, unspecified whether with hypoxia or hypercapnia Coding Level of Care Code New Pt Level 4 (67352) Diagnoses Asthma J45.909 Chronic respiratory failure J96.10 Former smoker Z87.891 CPT Codes Coding ([id number])
[2025-06-28 11:27] VITALS: PULSE 91; O2SAT 96
== END 2025-06-28 11:18 | disposition home or self-care (01) ==
LOC: HO.HPSW 10:13
PROVIDERS: PCP Physician Assistant Medical; Referring Provider Physician Assistant Medical; Visit Provider Nurse Practitioner Family
DX: J45.909 Unspecified asthma, uncomplicated (principal); J96.10 Chronic respiratory failure, unspecified whether with hypoxia or hypercapnia; Z87.891 Personal history of nicotine dependence
CPT/HCPCS: 94618; 99204

== ENCOUNTER 2025-06-28 14:25 | Outpatient (REF) | payer MEDICARE, SELFPAY ==
--- NOTE | ~2025-06-28 | US_ITS ---
EXAMINATION: US RETROPERITONEAL LIMITED (RENAL ONLY) CLINICAL INFORMATION: Chronic kidney disease. COMPARISON: None available. TECHNIQUE: Real-time ultrasound kidneys using grayscale technique. FINDINGS: RIGHT KIDNEY: 10 x 4 x 6 cm (SAG x AP x TRV). Volume: 109 cc. Normal echotexture. Normal renal cortical thickness. No hydronephrosis. No solid or cystic lesion. LEFT KIDNEY: 9 x 4 x 4 cm (SAG x AP x TRV). Volume: 76 disease. Normal echotexture. Normal renal cortical thickness. No hydronephrosis. No solid or cystic lesion. US/US renal BI IMPRESSION: No hydronephrosis. Normal exam.. Electronically signed by: Julio Griffith MD 06/28/2025 02:48 PM EDT
== END 2025-06-28 14:26 | disposition home or self-care (01) ==
LOC: HO.HMGCX 14:25
PROVIDERS: PCP Physician Assistant Medical; Visit Provider Physician Assistant Medical
DX: J45.909 Unspecified asthma, uncomplicated (principal); J96.10 Chronic respiratory failure, unspecified whether with hypoxia or hypercapnia; G47.34 Idiopathic sleep related nonobstructive alveolar hypoventilation; I12.9 Hypertensive chronic kidney disease with stage 1 through stage 4 chronic kidney disease, or unspecified chronic kidney disease; N18.9 Chronic kidney disease, unspecified; Z87.891 Personal history of nicotine dependence
CPT/HCPCS: 76775; 94618; 99202

== ENCOUNTER → 2025-06-28 14:29 | Outpatient (BNV) | payer MEDICARE, SELFPAY | PROVIDERS: PCP Physician Assistant Medical; Visit Provider Radiology Diagnostic Radiology | DX: N18.31 Chronic kidney disease, stage 3a (principal) | CPT/HCPCS: 76775 ==

== ENCOUNTER 2025-07-01 09:34 | Outpatient (AMB) | payer MEDICARE, SELFPAY ==
--- NOTE | 2025-07-01 09:43 | HO.NEPHOV_ITS ---
Vital Signs 07/01/25 09:46 Height 4 ft 10.27 in Weight 165 lb 8 oz BMI 34.3 BP 120/60 Blood Pressure Location Rt brachial Position Sitting Pulse 91 Pulse Source Pulse Oximeter Pulse Oximetry (%) 96 Oxygen Delivery Method Room Air Intake Visit Reasons: INP: CDK-Joseph w/Martir Customer Resource Specialist Required: No Accompanied by: Son Allergies No Known Allergies Allergy (Verified 07/01/25 09:46) HPI Comments Details: I had the pleasure of seeing Vicky in consultation for CKD. She has relocated from [place] and is currently living with her family in [place]. She was not aware of any CKD until she came here. She has hypertension for a long time and is on multiple anti hypertensive medications. She is on lasix & is unsure why she is on it. She denies any CHF, significant proteinuria but recently had DONNA. She is on ACEI and denies taking excessive NSAID's. She has no H/O hypercalcemia, new bone or back pain, epistaxis, photosensitivity, hematuria, sensori neural deafness, renal stones. She denies any CAD, CVA, carotid stenosis, PAD. She is not a diabetic but recently had DONNA which has settled to her baseline now [facility] Medical History (Updated 07/01/25 @ 21:27 by Panda Tucker MD) Pneumococcal vaccine administered Influenza vaccine administered UTI (urinary tract infection) Dementia Pedal edema Hyperlipidemia Prediabetes CKD (chronic kidney disease) Obesity (BMI 35.0-39.9 without comorbidity) Dental abscess Poor dentition Dental caries Hypertension Establishing care with new doctor, encounter for Former smoker Chronic respiratory failure Asthma Pre-op evaluation Family History Mother Pre-diabetes Father Pneumonia Social History Housing: House Alcohol intake: current Alcohol intake frequency: does not drink Patient Tobacco Use Status: Former Tobacco user service: No Current occupational status: retired Cognitive needs: Yes (has cane/walker- does not use ) Hearing needs: No Vision needs: Yes (reading glasses) Review of Systems Const All systems reviewed & are unremarkable except as noted in HPI and below Physical Exam Vital Signs: Last Vital Signs Pulse 91 07/01/25 09:46 BP 120/60 07/01/25 09:46 Pulse Ox 96 07/01/25 09:46 Oxygen Delivery Method Room Air 07/01/25 09:46 BMI result Body Mass Index 34.3 Const General: comfortable and no acute distress Orientation/consciousness: patient oriented x3 HEENT Head: Yes normocephalic Mouth: Normal oral and palatal mucosa present Eyes EOM: EOMs intact bilaterally Neck Neck: Yes supple Resp Auscultation: clear to auscultation bilaterally Cardio Jugular venous distension: no JVD Rate: regular rate Heart sounds: Murmur heart sound present GI Palpation (GI): Soft to palpation Auscultation: normal bowel sounds General: Yes no CVA tenderness Back/Spine/Pelvis Back: no CVA tenderness Skin General skin exam: no rashes or lesions noted Neuro General: patient oriented x3 and moves all extremities Extrem General: Yes no pedal edema Results Reviewed Nephrology Results: Sodium, (135-145) 144 mmol/L 06/26/25 Potassium, (3.3-5.1) 4.8 mmol/L 06/26/25 Chloride, (96-108) 108 mmol/L 06/26/25 Carbon Dioxide, (22-29) 26 mmol/L 06/26/25 BUN, (9-16) 18 mg/dL H 06/26/25 Creatinine, (0.5-1.4) 1.13 mg/dL 06/26/25 Calcium, (8.4-10.2) 9.3 mg/dL 06/26/25 Urine Protein, (Neg-Trace) Negative mg/dL 06/26/25 Renal US 06/28/25 Assessment & Plan Assessment & Plan (1) Hypertension: Code(s): I10 - Essential (primary) hypertension Category: Medical Qualifiers: Hypertension type: primary hypertension Qualified Code(s): I10 - Essential (primary) hypertension (2) CKD stage 3a, GFR 45-59 ml/min: Code(s): N18.31 - Chronic kidney disease, stage 3a Category: Medical Plan Vicky has CKD at baseline likely from vascular disease and age related loss of renal function. She recently had DONNA likely from tubular injury. Most likely she has been having edema from Amlodipine which is treated with lasix. She is also on ACEI. Her renal function has settled to baseline now. Her urine output is good and her volume status is optimal. Her BP is at goal. She can continue current medication regimen for now. I shall consider taking her off lasix and cutting back on Amlodipine , if possible. She could be a great candidate for SGLT2 i if she has prediabetes/DM/CHF. She needs a baseline ECHO. She does not take excess NSAID's. Follow up labs ordered and answered all questions Orders: Orders Complete Blood Count Auto Diff 6 Months I10 - Essential (primary) hypertension, N18.31 - Chronic kidney disease, stage 3a Calcium 6 Months I10 - Essential (primary) hypertension, N18.31 - Chronic kidney disease, stage 3a Parathyroid Hormone Intact 6 Months I10 - Essential (primary) hypertension, N18.31 - Chronic kidney disease, stage 3a Protein Creatinine Ratio, Ur 6 Months I10 - Essential (primary) hypertension, N18.31 - Chronic kidney disease, stage 3a Hemoglobin A1c 6 Months I10 - Essential (primary) hypertension, N18.31 - Chronic kidney disease, stage 3a Electrolytes 6 Months I10 - Essential (primary) hypertension, N18.31 - Chronic kidney disease, stage 3a Blood Urea Nitrogen 6 Months I10 - Essential (primary) hypertension, N18.31 - Chronic kidney disease, stage 3a Creatinine 6 Months I10 - Essential (primary) hypertension, N18.31 - Chronic kidney disease, stage 3a Immunofixation Pnl, Serum 6 Months I10 - Essential (primary) hypertension, N18.31 - Chronic kidney disease, stage 3a Vitamin D 25-OH Total 6 Months I10 - Essential (primary) hypertension, N18.31 - Chronic kidney disease, stage 3a Coding Level of Care Code New Pt Level 4 (62106) Diagnoses Primary hypertension I10 Hypertension type: primary hypertension CKD stage 3a, GFR 45-59 ml/min N18.31
[2025-07-01 09:46] VITALS: BP 120/60; PULSE 91; O2SAT 96; BMI 34.3
== END 2025-07-01 10:14 | disposition home or self-care (01) ==
LOC: HO.HKA 09:34
PROVIDERS: Referring Provider Physician Assistant Medical; Visit Provider Internal Medicine Nephrology
DX: I10 Essential (primary) hypertension (principal); N18.31 Chronic kidney disease, stage 3a
CPT/HCPCS: 99204

== ENCOUNTER → 2025-07-01 09:34 | Outpatient (BNVA) | payer MEDICARE, SELFPAY | PROVIDERS: Referring Provider Physician Assistant Medical; Visit Provider Internal Medicine Nephrology | DX: I10 Essential (primary) hypertension (principal); N18.31 Chronic kidney disease, stage 3a | CPT/HCPCS: 99202 ==

== ENCOUNTER 2025-07-25 09:27 | Outpatient (AMB) | payer MEDICARE, SELFPAY ==
[2025-07-25 09:27] VITALS: BP 135/60; PULSE 93; RESP 16; TEMP 36.3; O2SAT 96; BMI 34.2
--- NOTE | 2025-07-25 09:27 | MHC.PC.OV ---
Vital Signs 07/25/25 09:27 Height 4 ft 10.27 in Weight 165 lb 6 oz BMI 34.2 BP 135/60 Blood Pressure Location Rt brachial Position Sitting Respiration 16 Pulse 93 Pulse Source Pulse Oximeter Temp 97.4 F Temp Source Temporal Artery Scan Pulse Oximetry (%) 96 Oxygen Delivery Method Room Air Intake Visit Reasons: B/P Check Legal Intern Required: No Accompanied by: Self / Same As Patient Allergies No Known Allergies Allergy (Verified 07/25/25 10:15) Medication List - Last Reconciled 07/25/25 by Karol Leong PA-C amlodipine 10 mg PO DAILY budesonide (Pulmicort) 0.5 mg (2 mL) inhalation BID cephalexin 500 mg PO Q6H 7 days ezetimibe (Zetia) 10 mg PO DAILY iyzqnzbgzsd-ylkwjmipi-zgteiohh 100-62.5-25 mcg (Trelegy Ellipta) 1 inh inhalation DAILY furosemide (Lasix) 40 mg PO DAILY lisinopril 20 mg PO DAILY mupirocin 2% 1 appl topical BID nitrofurantoin monohyd/m-cryst 100 mg (Macrobid) 100 mg PO Q12H PRN Tobacco use date assessed: 07/25/25 Dental Screening Dental Screen Date: 07/25/25 Did you have a dental visit in the last 12 months?: No Did you have a dental problem in the last 6 months where you did not have access to dental care?: Yes Was dental information given to patient?: Patient has dentist HPI B/P Check HPI Details The patient is an 89-year-old female presenting with a blood pressure check. Her blood pressure was previously elevated despite being on amlodipine 10 mg, prompting an increase in lisinopril to 20 mg daily. She has tolerated lisinopril well over the past month, with no side effects, although she reports congestion and a cough, which she does not believe are related to the medication. The patient recently returned from [place] and sustained a skin tear on her right lower extremity after bumping her leg on a golf cart. The laceration is superficial with mild surrounding erythema, but she denies any fever, chills, nausea, vomiting, or pain at the site. The wound was cleaned with normal saline and dressed with Bactroban and a non-adherent dressing. She was prescribed Keflex for a possible cellulitis infection and is scheduled to return in three months for a follow-up blood pressure check. [facility] Medical History (Updated 07/25/25 @ 10:27 by Karol Leong PA-C) Infected skin tear Pneumococcal vaccine administered Influenza vaccine administered UTI (urinary tract infection) Dementia Pedal edema Hyperlipidemia Prediabetes CKD (chronic kidney disease) Obesity (BMI 35.0-39.9 without comorbidity) Dental abscess Poor dentition Dental caries Hypertension Establishing care with new doctor, encounter for Former smoker Chronic respiratory failure Asthma Pre-op evaluation Family History Mother Pre-diabetes Father Pneumonia Social History Housing: House Alcohol intake: current Alcohol intake frequency: does not drink Patient Tobacco Use Status: Former Tobacco user service: No Current occupational status: retired Cognitive needs: Yes (has cane/walker- does not use ) Hearing needs: Yes Vision needs: Yes (reading glasses) Questionnaire PHQ-9 Over the last 2 weeks, how often have you been bothered by any of the following problems? 1. Little interest or pleasure in doing things: not at all 2. Feeling down, depressed, or hopeless: not at all 3. Trouble falling or staying asleep, or sleeping too much: not at all 4. Feeling tired or having little energy: not at all 5. Poor appetite or overeating: not at all 6. Feeling bad about yourself - or that you are a failure or have let yourself or your family down: not at all 7. Trouble concentrating on things, such as reading the newspaper or watching television: not at all 8. Moving or speaking so slowly that other people could have noticed. Or the opposite - being so fidgety or restless that you have been moving around a lot more than usual: not at all 9. Thoughts that you would be better off or of hurting yourself in some way: not at all Total score: 0 Depression Screening Interpretation: Negative Depression Screening Done: Yes 50591 - PHQ-9 Billing: Yes Source: Developed by Drs. Bossman Angulo, Ana Maria Bourgeois, Ba Ball and colleagues, with an educational yolie from [employer]. Thrive Questionnaire Date Thrive assessed: 07/25/25 I am a: Patient What is your living situation today?: I have a steady place to live Within the past 12 months, did the food you bought not last and you didn't have the money to get more?: Never true Within the past 12 months, did you worry whether your food would run out before you got money to buy more?: Never true Do you have trouble paying for medicines?: No Do you have trouble getting transportation to medical appointments?: No Do you have trouble paying your heating and electricity bill?: No Do you have trouble taking care of your child, family member or friend?: No Do you have trouble with day-to-day activities such as bathing, preparing meals, shopping, managing finances, etc.?: No Are you currently unemployed and looking for a job?: No Are you interested in more education?: No Please select the resources that you would like help with: None THRIVE Score: 0 AUDIT C Alcohol Use Questionnaire (AUDIT-C) 1. How often do you have a drink containing alcohol?: Never 3. How often do you have six or more drinks on one occasion?: Never Total Score: 0 Score Reviewed/Action Taken: No RONNY-7 AMB Questionnaire RONNY-7 Date RONNY - 7 assessed: 07/25/25 Feeling nervous, anxious, or on edge: 0 = Not at all Not being able to stop or control worryin = Not at all Worrying too much about different things: 0 = Not at all Trouble relaxin = Not at all Being so restless that it is hard to sit still: 0 = Not at all Becoming easily annoyed or irritable: 0 = Not at all Feeling afraid as if something awful might happen: 0 = Not at all Total RONNY-7 score (0-4 normal; 5-9 mild; 10-14 moderate; 15-21 severe): 0 Source: Developed by Drs. Bossman Angulo, Ana Maria Bourgeois, Ba Ball and colleagues, with an educational yolie from [employer]. RONNY-7 Assessment Billing RONNY-7 Assessment Tool: RONNY-7 Assessment 95296 Review of Systems Const Details: - Cardiovascular: Denies chest pain or dyspnea. - Respiratory: Reports congestion and cough. Denies dyspnea. - Integumentary: Reports skin tear with mild erythema. Denies fever, chills, nausea, vomiting, or pain at the site. All systems reviewed & are unremarkable except as noted in HPI and below Physical exam (Primary Care) Vital Signs: Last Vital Signs Temp 97.4 F 07/25/25 09:27 Pulse 93 07/25/25 09:27 Resp 16 07/25/25 09:27 BP 135/60 07/25/25 09:27 Pulse Ox 96 07/25/25 09:27 Oxygen Delivery Method Room Air 07/25/25 09:27 Care Plan Goal for BP management: <140/90 at Goal BMI result Body Mass Index 34.2 BMI Assessment/Plan discussion: High BMI High, discussed plan: lifestyle, weight reduction, dietary, physical activity, alcohol moderation and other Tobacco/Smoking Status: Tobacco use Status Tobacco use date assessed 07/25/25 07/25/25 09:29 Patient Tobacco Use Status Former Tobacco user 07/25/25 09:29 PHQ-9: PHQ-9 Score PHQ-9: Total score 0 07/25/25 09:29 Depression Screening Interpretation: Negative Thrive Assessment: Date of Thrive Assessment Date Thrive assessed 07/25/25 07/25/25 09:29 Const Other: Appearance: Alert. Oriented X3. No acute distress. Head: Normal external exam. Normocephalic. Atraumatic. Eyes: Pupils are equal, round, and reactive to light. Extraocular movements intact. Conjunctiva and sclera normal. Eyelids normal. Throat: Pharynx normal. Uvula midline. Moist mucous membranes. Neck: Normal inspection. Neck supple. Full range of motion. Cardiovascular: Normal heart rate and rhythm. Heart sound normal. No murmurs noted. Pulses normal throughout. Respiratory: No respiratory distress. Painless inspiration. Breath sounds normal. No wheezes/rales/rhonchi noted. No accessory muscle usage noted or decreased air movement noted. Back: Full range of motion noted. Skin: Skin warm and dry. Normal skin color. Normal skin turgor. Mild surrounding erythema on the right lower extremity with a superficial laceration. No rashes/lesions/lacerations noted elsewhere. Extremities: No lower extremity edema. Extremities exhibit normal range of motion. Extremities nontender except for the right lower extremity with a superficial laceration. Neuro: Oriented X 3. No motor deficit. No sensory deficit. Reflexes normal. Coding Level of Care Code Est Pt Level 4 (48160) Complex EM visit Add On G2211 Diagnoses Primary hypertension I10 Hypertension type: primary hypertension Infected skin tear T14.8XXA; L08.9 Additional Codes RONNY-7 Assessment Billing - RONNY-7 Assessment Tool: RONNY-7 Assessment 44064 ([id number]) PHQ-9 - 58609 - PHQ-9 Billing: Yes ([id number]) Assessment & Plan Assessment & Plan (1) Hypertension: Code(s): I10 - Essential (primary) hypertension Category: Medical Qualifiers: Hypertension type: primary hypertension Qualified Code(s): I10 - Essential (primary) hypertension Plan: The patient's hypertension is being managed with lisinopril 20 mg daily, which she has been tolerating well without side effects. She will continue this medication and return in three months for a follow-up blood pressure check. (2) Infected skin tear: Code(s): T14.8XXA - Other injury of unspecified body region, initial encounter; L08.9 - Local infection of the skin and subcutaneous tissue, unspecified Category: Medical Plan: The patient sustained a skin tear on her right lower extremity, which was cleaned and dressed appropriately. She was prescribed Keflex to address a possible cellulitis infection. Plan Plan Patient was informed and verbally consented to the use of an ambient scribe for clinic note documentation during this visit. 1. Hypertension The patient's hypertension is being managed with lisinopril 20 mg daily, which she has been tolerating well without side effects. She will continue this medication and return in three months for a follow-up blood pressure check. 2. Skin Tear With Mild Erythema The patient sustained a skin tear on her right lower extremity, which was cleaned and dressed appropriately. She was prescribed Keflex to address a possible cellulitis infection. Medications: New mupirocin 2% 1 appl topical BID 22 grams 1RF cephalexin 500 mg PO Q6H 28 caps 0RF 7 days Refilled lisinopril 20 mg PO DAILY 90 tabs 3RF Patient Instructions: - Continue taking lisinopril 20 mg daily as prescribed. - Monitor for any side effects or persistent cough and report if they occur. - Apply Bactroban and non-adherent dressing to the skin tear as directed. - Take Keflex as prescribed for possible cellulitis. - Return in three months for a follow-up blood pressure check.
== END 2025-07-25 10:10 | disposition home or self-care (01) ==
LOC: HO.HMCSH 09:27
PROVIDERS: PCP Physician Assistant Medical; Visit Provider Physician Assistant Medical
DX: I10 Essential (primary) hypertension (principal); T14.8XXA Other injury of unspecified body region, initial encounter; L08.9 Local infection of the skin and subcutaneous tissue, unspecified

== ENCOUNTER → 2025-07-25 09:27 | Outpatient (BNVA) | payer MEDICARE, SELFPAY | PROVIDERS: PCP Physician Assistant Medical; Visit Provider Physician Assistant Medical | DX: Z01.30 Encounter for examination of blood pressure without abnormal findings (principal); I10 Essential (primary) hypertension; S81.811A Laceration without foreign body, right lower leg, initial encounter; L08.9 Local infection of the skin and subcutaneous tissue, unspecified; W22.8XXA Striking against or struck by other objects, initial encounter; Y93.9 Activity, unspecified; Y92.9 Unspecified place or not applicable; Y99.9 Unspecified external cause status; Z79.899 Other long term (current) drug therapy | CPT/HCPCS: 96127; 99212 ==

== ENCOUNTER → 2025-08-02 13:42 | Outpatient (REF) | payer MEDICARE, SELFPAY ==
--- NOTE | 2025-08-02 13:46 | CA_ITS ---
Transthoracic Echocardiogram Patient (Last, First, Middle): Vicky Trevizo M Gender: F Date of : 1935 Age: 89 Procedure Date: 08/02/2025 Procedure Type: Transthoracic Echocardiogram Location: OP Height: 154. cm Weight: 68.04 kg BSA: 1.66 m2 Heart Rate: 75 bpm BP: 156 / 50 mmHg Poultry Dresser: REINA Referring MD: Ayde Page NP Symptoms: R06.00 - Dyspnea, unspecified Study Quality: Adequate ECG Rhythm: Sinus Conclusions: - Normal left ventricular cavity size. The left ventricular systolic function is hyperdynamic. The visually estimated ejection fraction is >70%. - E/E prime ratio is between 8 and 15 consistent with indeterminate filling pressures. - Normal right ventricular cavity size and systolic function. - There is mild to moderate aortic valve stenosis. Findings Left Ventricle Normal left ventricular cavity size. The left ventricular systolic function is hyperdynamic. The visually estimated ejection fraction is >70%. There is no evidence of regional wall motion abnormalities. Abnormal diastolic function is noted. Spectral Doppler is indicative of an impaired relaxation filling pattern. E/E prime ratio is between 8 and 15 consistent with indeterminate filling pressures. There is mild septal asymmetric hypertrophy. Right Ventricle Normal right ventricular cavity size and systolic function. Atria The left atrium is mildly dilated. The right atrium is normal in size. Aortic Valve There is moderate calcification of the aortic valve. There is mild to moderate aortic valve stenosis. The peak aortic velocity is 2.71 m/s. The mean gradient is 18 mmHg. There is no aortic valve regurgitation. Mitral Valve The mitral valve appears normal. There is no mitral valve regurgitation. There is no mitral valve stenosis. Pulmonic Valve The pulmonic valve is normal. There is no pulmonic valve regurgitation. Tricuspid Valve Normal tricuspid valve structure. There is no tricuspid valve regurgitation. Normal right atrial pressure. There is no evidence of pulmonary hypertension. Great Vessels All visible segments of the aorta are normal in size. The visualized portions of the pulmonary artery and branches are normal. Venous The inferior vena cava is normal in size and collapses greater than 50% with inspiration. Pericardium/Pleural There is no evidence of pericardial effusion. Prior Study Comparison No prior study available for comparison. Measurements 2D Linear Measurements IVSd: 1.33 0.6-0.9/0.6-1.0 cm LVIDd: 4.17 3.9-5.3/4.2-5.9 cm LVIDd Index: 2.51 2.4-3.2/2.2-3.1 cm/m2 LVIDs: 2.60 2.0-3.6 cm LVPWd: 0.83 0.7-1.1 cm LA Diam: 4.10 2.7-3.8/3.0-4.0 cm LAIDs Index: 2.47 1.5-2.3 cm/m2 LV Mass: 188.49 67-162/88-224 g LV Mass Index: 113.55 43-95/49-115 g/m2 LVOT Diam: 2.00 3.0+(-)1.3 cm 2D Systolic Function EF 4C: 75.60 >55% EF 2C: 69.80 >55% EF BiP: 74.50 >55% Mitral Valve MV Pk E: 0.89 MV PK A: 1.21 MV Decel Time: 175.00 E/A: 0.70 E'Lateral: 7.51 E'Medial: 6.74 E/E' Med: 13.20 E/E' Lat: 11.90 PHT: 51.00 MVA PHT: 4.31 Decel [place]: 5.10 Aortic Valve AoV Pk Adam: 2.71 AoV Mn Adam: 2.02 AoV VTI: 0.59 AoV Pk Grad: 29.00 Aov Mn Grad: 18.00 COLTON Cont.VTI: 1.34 LVOT LVOT Pk Adam: 1.17 LVOT Mn Adam: 0.94 LVOT VTI: 0.25 LVOT Pk Grad: 5.00 LVOT Mn Grad: 4.00 LVOT Diam: 2.00 LVOT Area: 3.14 Diastolic Function MV Pk E: 0.89 MV Pk A: 1.21 E/A: 0.70 E'Medial: 6.74 E/E' Med: 13.20 E' Laterial: 7.51 E/E' Lat: 11.90 Right Ventricle TAPSE (mm): 22.30 TVS' Aadm: 12.20 Tricuspid Valve TR Pk Adam: 2.46 TR Pk Grad: 24.00 RA Press: 3.00 RVSP: 27.00 Great Vessels Aorta Sinus of Valsalva: 3.10 2.0-3.5 cm Ao Asc: 3.50 2.1-3.4 cm Pulmonary Veins Pulm Vein S/D 1.30 Pulmonary Valve PV Pk Adam: 1.17 Peak PV Grad: 5.00 Updated in Other Vendor System with Status of Final Placido Leach MD electronically signed on 08/04/2025 6:01:46 PM with status of Final
== END ==
LOC: HO.CARD 13:42
PROVIDERS: PCP Physician Assistant Medical; Visit Provider Nurse Practitioner Family
DX: R06.00 Dyspnea, unspecified (principal)
CPT/HCPCS: 93306

== ENCOUNTER → 2025-08-02 13:46 | Outpatient (BNV) | payer MEDICARE, SELFPAY | PROVIDERS: PCP Physician Assistant Medical; Visit Provider Internal Medicine Cardiovascular Disease | DX: I42.2 Other hypertrophic cardiomyopathy (principal); I51.89 Other ill-defined heart diseases; I35.0 Nonrheumatic aortic (valve) stenosis | CPT/HCPCS: 93306 ==

== ENCOUNTER 2025-09-06 12:46 | Outpatient (AMB) | payer MEDICARE, SELFPAY ==
[2025-09-06 13:01] VITALS: BP 142/60; PULSE 83; O2SAT 95; BMI 34.2
--- NOTE | 2025-09-06 13:01 | MHC.OFFVIS ---
Vital Signs 09/06/25 13:01 Height 4 ft 10.27 in Weight 165 lb 6 oz BMI 34.2 BP 142/60 H Blood Pressure Location Rt brachial Position Sitting Pulse 83 Pulse Source Pulse Oximeter Pulse Oximetry (%) 95 Oxygen Delivery Method Room Air Intake Visit Reasons: Asthma,Chronic respiratory failure,lashon dependance Allergies No Known Allergies Allergy (Verified 09/06/25 13:04) HPI HPI Asthma,Chronic respiratory failure,lashon dependance: Details: Vicky is a pleasant 89 year old female, former 20 pack year smoker, quit 40+ years ago with underlying asthma, chronic respiratory failure, and HTN. Today she is accompanied by family member and history obtained from both as patient a poor historian. At the last visit patient had 6MWT performed and did not require supplemental oxygen, lowest oxygen saturation 89% however visibly dyspneic and tachy up to the 130s. She is not under the care of cardiology. Overnight oximetry demonstrated nocturnal hypoxemia, <88% for 100 minutes and was started on 2L supplemental oxygen. DME is [facility]admin[facility]. She has been using consistently and recommendations made for HST due to number of desaturations however declines at this time. She continues to report intermittent dry cough and dyspnea, denies wheezing, chest tightness or chest congestion. After further discussion patient continues to use Trelegy intermittently, using albuterol MDI nightly which is likely . REPLACED BY [facility] Medical History (Updated 07/25/25 @ 10:27 by Karol Leong PA-C) Infected skin tear Pneumococcal vaccine administered Influenza vaccine administered UTI (urinary tract infection) Dementia Pedal edema Hyperlipidemia Prediabetes CKD (chronic kidney disease) Obesity (BMI 35.0-39.9 without comorbidity) Dental abscess Poor dentition Dental caries Hypertension Establishing care with new doctor, encounter for Former smoker Chronic respiratory failure Asthma Pre-op evaluation Family History Mother Pre-diabetes Father Pneumonia Social History Housing: House Alcohol intake: current Alcohol intake frequency: does not drink Patient Tobacco Use Status: Former Tobacco user service: No Current occupational status: retired Cognitive needs: Yes (has cane/walker- does not use ) Hearing needs: Yes Vision needs: Yes (reading glasses) Review of Systems Const Denies chills, Denies excessive sweating, Denies fever(s), Denies headache(s) and Denies night sweats Eyes Denies dry eyes, Denies irritation and Denies itchy eyes ENT Reports Normal hearing present, Denies headache(s), Denies nasal congestion, Denies nasal discharge, Denies post nasal drip and Denies sore throat Card Denies chest pain, Denies chest pain at rest, Denies chest pain with activity, Denies claudication, Reports dyspnea on exertion, Denies orthopnea and Denies paroxysmal nocturnal dyspnea Resp Denies change in phlegm color, Denies chest congestion, Reports cough, Denies hemoptysis, Denies excessive phlegm production, Denies pain on inspiration, Denies pain with cough, Reports dyspnea on exertion, Denies stridor and Denies wheezing Musc Denies myalgias Neuro Reports Normal hearing present and Denies headache(s) Endo Denies excessive sweating Jeffery/Lymph Denies lymphadenopathy Aller/Immun Denies itchy eyes, Denies seasonal rhinorrhea and Denies wheezing Physical Exam Vital Signs: Last Vital Signs Pulse 83 09/06/25 13:01 BP 142/60 H 09/06/25 13:01 Pulse Ox 95 09/06/25 13:01 Oxygen Delivery Method Room Air 09/06/25 13:01 BMI result Body Mass Index 34.2 Const General: cooperative, healthy appearing, comfortable, no acute distress, well developed and alert Nutritional Appearance: obese Orientation/consciousness: patient oriented x3 Limitations: no limitations HEENT Head: Yes normal to inspection, Yes normocephalic and Yes atraumatic Ears: hearing grossly normal bilaterally and external ears normal Eyes General: appearance normal, both eyes and all related structures Eyelids: Yes eyelids normal Sclerae: sclerae normal EOM: EOMs intact bilaterally Neck Neck: Yes normal visual inspection and Yes no lymphadenopathy Lymphatic: no lymphadenopathy noted Chest Chest palpation & inspection: normal inspection of the chest Resp Effort & Inspection: normal respiratory effort, able to speak in complete sentences, no audible wheezes, no cough, no stridor, not tachypneic, no tripod positioning and no use of accessory muscles Auscultation: clear to auscultation bilaterally Cardio Jugular venous distension: no JVD Rate: regular rate Rhythm: regular rhythm Skin Other: warm, dry General skin exam: no rashes or lesions noted Neuro General: patient oriented x3 Cranial nerves: Yes Normal hearing present Cognition (Neuro): normal cognition Extrem Other: mild edema of RLE Psych Appearance: grossly normal and well kempt Speech and movement: Normal speech and movement present and Clear speech present Affect: normal affect Attitude: cooperative Thought process: Normal thought process present Thought content: Normal thought content present Insight: Good insight present (Psych) Judgement: Good judgement present (Psych) Results Reviewed Results Reviewed: [address] [address] Cardiology Report Signed Patient: Vicky Trevizo MR#: [id number] : 1935 Acct:[id number] Age/Sex: 89 / F ADM Date: 08/02/25 Loc: [facility] Attending Dr: Ayde Page NP Ordering Physician: Ayde Page NP Date of Service: 08/02/25 Procedure(s): CA echo transthoracic complete Accession Number(s): cc: Adye Page NP~ Reason for Exam: R06.00 - Dyspnea, unspecified Transthoracic Echocardiogram Patient (Last, First, Middle): Vicky Trevizo M Gender: F Date of : 1935 Age: 89 Procedure Date: 08/02/2025 Procedure Type: Transthoracic Echocardiogram Location: OP Height: 154. cm Weight: 68.04 kg BSA: 1.66 m2 Heart Rate: 75 bpm BP: 156 / 50 mmHg Postal Carrier: REINA Referring MD: Ayde Page NP Symptoms: R06.00 - Dyspnea, unspecified Study Quality: Adequate ECG Rhythm: Sinus Conclusions: - Normal left ventricular cavity size. The left ventricular systolic function is hyperdynamic. The visually estimated ejection fraction is >70%. - E/E prime ratio is between 8 and 15 consistent with indeterminate filling pressures. - Normal right ventricular cavity size and systolic function. - There is mild to moderate aortic valve stenosis. Findings Left Ventricle Normal left ventricular cavity size. The left ventricular systolic function is hyperdynamic. The visually estimated ejection fraction is >70%. There is no evidence of regional wall motion abnormalities. Abnormal diastolic function is noted. Spectral Doppler is indicative of an impaired relaxation filling pattern. E/E prime ratio is between 8 and 15 consistent with indeterminate filling pressures. There is mild septal asymmetric hypertrophy. Right Ventricle Normal right ventricular cavity size and systolic function. Atria The left atrium is mildly dilated. The right atrium is normal in size. Aortic Valve There is moderate calcification of the aortic valve. There is mild to moderate aortic valve stenosis. The peak aortic velocity is 2.71 m/s. The mean gradient is 18 mmHg. There is no aortic valve regurgitation. Mitral Valve The mitral valve appears normal. There is no mitral valve regurgitation. There is no mitral valve stenosis. Pulmonic Valve The pulmonic valve is normal. There is no pulmonic valve regurgitation. Tricuspid Valve Normal tricuspid valve structure. There is no tricuspid valve regurgitation. Normal right atrial pressure. There is no evidence of pulmonary hypertension. Great Vessels All visible segments of the aorta are normal in size. The visualized portions of the pulmonary artery and branches are normal. Venous The inferior vena cava is normal in size and collapses greater than 50% with inspiration. Pericardium/Pleural There is no evidence of pericardial effusion. Prior Study Comparison No prior study available for comparison. Measurements 2D Linear Measurements IVSd: 1.33 0.6-0.9/0.6-1.0 cm LVIDd: 4.17 3.9-5.3/4.2-5.9 cm LVIDd Index: 2.51 2.4-3.2/2.2-3.1 cm/m2 LVIDs: 2.60 2.0-3.6 cm LVPWd: 0.83 0.7-1.1 cm LA Diam: 4.10 2.7-3.8/3.0-4.0 cm LAIDs Index: 2.47 1.5-2.3 cm/m2 LV Mass: 188.49 67-162/88-224 g LV Mass Index: 113.55 43-95/49-115 g/m2 LVOT Diam: 2.00 3.0+(-)1.3 cm 2D Systolic Function EF 4C: 75.60 >55% EF 2C: 69.80 >55% EF BiP: 74.50 >55% Mitral Valve MV Pk E: 0.89 MV PK A: 1.21 MV Decel Time: 175.00 E/A: 0.70 E'Lateral: 7.51 E'Medial: 6.74 E/E' Med: 13.20 E/E' Lat: 11.90 PHT: 51.00 MVA PHT: 4.31 Decel [place]: 5.10 Aortic Valve AoV Pk Adam: 2.71 AoV Mn Adam: 2.02 AoV VTI: 0.59 AoV Pk Grad: 29.00 Aov Mn Grad: 18.00 COLTON Cont.VTI: 1.34 LVOT LVOT Pk Adam: 1.17 LVOT Mn Adam: 0.94 LVOT VTI: 0.25 LVOT Pk Grad: 5.00 LVOT Mn Grad: 4.00 LVOT Diam: 2.00 LVOT Area: 3.14 Diastolic Function MV Pk E: 0.89 MV Pk A: 1.21 E/A: 0.70 E'Medial: 6.74 E/E' Med: 13.20 E' Laterial: 7.51 E/E' Lat: 11.90 Right Ventricle TAPSE (mm): 22.30 TVS' Adam: 12.20 Tricuspid Valve TR Pk Adam: 2.46 TR Pk Grad: 24.00 RA Press: 3.00 RVSP: 27.00 Great Vessels Aorta Sinus of Valsalva: 3.10 2.0-3.5 cm Ao Asc: 3.50 2.1-3.4 cm Pulmonary Veins Pulm Vein S/D 1.30 Pulmonary Valve PV Pk Adam: 1.17 Peak PV Grad: 5.00 Updated in Other Vendor System with Status of Final Placido Leach MD electronically signed on 08/04/2025 6:01:46 PM with status of Final Dictated By: Placido Leach MD Signed By: <Electronically signed by Placido Leach MD in OV> 08/04/25 1801 DD/ 1400 TD/TT: Mechanic: Assessment & Plan Assessment & Plan (1) Asthma: Code(s): J45.909 - Unspecified asthma, uncomplicated Category: Medical (2) Chronic respiratory failure: Code(s): J96.10 - Chronic respiratory failure, unspecified whether with hypoxia or hypercapnia Category: Medical (3) Former smoker: Comment: over 50-60 years ago she stopped Code(s): Z87.891 - Personal history of nicotine dependence Category: Social Hx Plan Reviewed echo which demonstrated abnormal diastolic dysfunction LVEF>70% and mild to moderate aortic valve stenosis. Discussed cardiology referral however patient would like to further discuss with PCP. Will notify PCP of findings. Discussed with the patient the importance of using the Trelegy inhaler consistently to manage her asthma, emphasizing the need to rinse her mouth after use to prevent thrush. Will also send Albuterol MDI PRN, as current rx is likely . If consistently using Trelegy and continues to be symptomatic will increase Trelegy and consider chest CT, CXR 05/10 did not reveal any significant abnormalities. Advised patient to continue to use 2L supplemental oxygen NOC given moderate nocturnal hypoxemia noted on overnight oximetry. All questions were answered and patient is in agreement of plan. Will follow up in 8 weeks or sooner if needed. Medications: New albuterol sulfate 90 mcg/actuation 2 puffs inhalation Q4-6H PRN 1 ea 3RF shortness of breath or wheezing Discontinued budesonide (Pulmicort) Discontinued Reason: Patient Completed Course 0.5 mg (2 mL) inhalation BID 60 mL 3RF Coding Level of Care Code Est Pt Level 4 (58949) Diagnoses Asthma J45.909 Chronic respiratory failure J96.10 Former smoker Z87.891
== END 2025-09-06 13:43 | disposition home or self-care (01) ==
LOC: HO.HPSW 12:47
PROVIDERS: PCP Physician Assistant Medical; Visit Provider Nurse Practitioner Family
DX: J45.909 Unspecified asthma, uncomplicated (principal); J96.10 Chronic respiratory failure, unspecified whether with hypoxia or hypercapnia; Z87.891 Personal history of nicotine dependence
CPT/HCPCS: 99214

== ENCOUNTER → 2025-09-06 12:46 | Outpatient (BNVA) | payer MEDICARE, SELFPAY | PROVIDERS: PCP Physician Assistant Medical; Visit Provider Nurse Practitioner Family | DX: J96.11 Chronic respiratory failure with hypoxia (principal); J45.909 Unspecified asthma, uncomplicated; Z87.891 Personal history of nicotine dependence; Z99.81 Dependence on supplemental oxygen; I10 Essential (primary) hypertension; E66.9 Obesity, unspecified; Z68.34 Body mass index [BMI] 34.0-34.9, adult | CPT/HCPCS: 99212 ==